=== PATIENT | female | born 2000 | race Caucasian/White ===

== ENCOUNTER 2018-05-13 20:50 | Emergency (ER) | payer MEDICAID ==
[~2018-05-13] VITALS: Ht 160 cm; Wt 110.2 kg
[2018-05-13 21:01] VITALS: BP 139/65
[2018-05-13] MEDS ORDERED: OMEP20TC12 PO (21:03)
--- NOTE | 2018-05-13 21:04 | NUR ---
PT RETURNED TO LOBBY IN STABLE CONDITION
--- NOTE | 2018-05-13 21:41 | NUR ---
PT AMBULATED TO BED 08.
--- NOTE | 2018-05-13 21:52 | NUR ---
PT BIB self C/O ABD pain x4 days. PT reports sharp pain in epigastric region at 7/10 that radiates to left lower back. ABD is soft, tender to touch in lower ABD midline, with bowel sounds active x4 quadrants. PT reports N/V x3 days and diarrhea x1 day. PT denies any frequency or burnig with urination. ER MD to see PT. Safety precautions in place, will continue to monitor. MedHx: Asthma, gastritis RX: ibuprofen
[2018-05-13] MEDS ORDERED: ONDANSETRON 4 MG ODT PO ONE (22:40)
[2018-05-13 22:59] LABS: BASOPHILS % (AUTO) 0.4 % (0.0-2.0); EOSINOPHILS % (AUTO) 0.4 % (0.0-4.0); HEMATOCRIT 36.8 % (36-48); HEMOGLOBIN 11.5 g/dL (12.0-16.0); LYMPHOCYTES # (AUTO) 1.8 K/uL (2.5-16.5); LYMPHOCYTES % (AUTO) 18.5 % (20.5-51.1); MEAN CORPUSCULAR HEMOGLOBIN 25 pg (27-31); MEAN CORPUSCULAR HGB CONC 31 g/dL (33-37); MEAN CORPUSCULAR VOLUME 80.8 fL (80-94); MONOCYTES # (AUTO) 0.7 K/uL (0.8-1.0); MONOCYTES % (AUTO) 7.7 % (1.7-9.3); NEUTROPHILS # (AUTO) 7.1 K/uL (1.8-7.7); PLATELET COUNT (AUTO) 247 K/uL (140-450); RED BLOOD CELL COUNT(AUTO) 4.56 MIL/uL (4.20-5.40); RED CELL DISTRIBUTION WIDTH 17.6 % (11.6-13.7); WHITE BLOOD COUNT (AUTO) 9.7 K/uL (4.5-11.0)
[2018-05-13 23:28] LABS: APPEARANCE,URINE CLOUDY (CLEAR); COLOR,URINE YELLOW (YELLOW); UGLUCOSE NEGATIVE (NEGATIVE)
[2018-05-13 23:29] LABS: BILIRUBIN,URINE NEGATIVE (NEGATIVE); BLOOD, URINE 2+ (NEGATIVE); LEUKOCYTE ESTERASE ,URINE 2+ (NEGATIVE); NITRITE, URINE POSITIVE (NEGATIVE)
[2018-05-13 23:30] LABS: HYALINE CASTS, URINE 0-10 /LPF (None Seen); RBC,URINE TOO NUMEROUS TO COUN /HPF (0-5); WBC,URINE TOO MANY TO COUNT /HPF (0-5)
[2018-05-13 23:39] LABS: POTASSIUM 3.7 mmol/L (3.5-5.1)
[2018-05-13 23:40] LABS: ALBUMIN 3.5 g/dL (3.4-5.0); ANION GAP 16.9 (8-16); CARBON DIOXIDE 23.8 mmol/L (21-32); TOTAL BILIRUBIN 0.3 mg/dL (0.0-1.0)
[2018-05-13 23:41] LABS: FREE T4 (FREE THYROXINE) 1.4 ng/dL (0.76-1.46)
[2018-05-13 23:42] LABS: THYROID STIMULATING HORMONE 1.28 uIU/mL (0.34-3.74)
[2018-05-14 00:31] VITALS: BP 112/73
--- NOTE | 2018-05-14 00:33 | NUR ---
Patient discharged with v/s stable. Written and verbal after care instructions given and explained. Patient alert, oriented and verbalized understanding of instructions. Ambulatory with steady gait. All questions addressed prior to discharge. ID band removed. Patient advised to follow up with PMD. Rx of CIPRO,ZOFRAN given. Patient educated on indication of medication including possible reaction and side effects. Opportunity to ask questions provided and answered.
== END 2018-05-14 00:31 | disposition home or self-care (01) ==
LOC: MED 20:50
DX: R11.2 Nausea with vomiting, unspecified (principal); R19.7 Diarrhea, unspecified; N39.0 Urinary tract infection, site not specified; J45.909 Unspecified asthma, uncomplicated; Z79.899 Other long term (current) drug therapy
CPT/HCPCS: 36415; 80053; 81001; 81025; 83690; 84439; 84443; 85025; 87086; 87186; 99283; Q0162

== ENCOUNTER 2018-09-06 23:50 | Emergency (ER) | payer MEDICAID ==
[~2018-09-06] VITALS: Ht 160 cm; Wt 72.6 kg
[~2018-09-06 23:50] MED LIST: OMEP20TC12 PO
--- NOTE | 2018-09-06 23:51 | NUR ---
PT BIBA BLS. TAKEN TO BED 9. [place] [employer] AT BEDSIDE
[2018-09-06 23:56] VITALS: BP 15/67
--- NOTE | 2018-09-06 23:58 | NUR ---
Dr. Alberto evaluating patient at bedside.
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
[2018-09-07] MEDS ORDERED: NEOMYCIN/POLYMYXIN/BACITRACIN 0.9 GM/1 PKT TP ONE (00:11)
[2018-09-07 00:24] VITALS: BP 115/67
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
== END 2018-09-07 00:25 ==
LOC: MED 23:50
DX: S50.811A Abrasion of right forearm, initial encounter (principal); J45.909 Unspecified asthma, uncomplicated; Z79.899 Other long term (current) drug therapy; V89.2XXA Person injured in unspecified motor-vehicle accident, traffic, initial encounter; Y93.89 Activity, other specified; Y92.410 Unspecified street and highway as the place of occurrence of the external cause; Y99.8 Other external cause status
CPT/HCPCS: 99283

== ENCOUNTER 2023-09-24 10:32 | Emergency (ER) | payer MEDICAID, OTHER ==
[~2023-09-24] VITALS: Ht 157.5 cm; Wt 108.4 kg
[~2023-09-24 10:32] MED LIST changes: +OMEP-278 PO; -OMEP20TC12 PO
[2023-09-24 10:59] VITALS: BP 135/87; PULSE 60; RESP 19; TEMP 96.8; O2SAT 99
[2023-09-24 11:33] VITALS: O2SAT 99
[2023-09-24] MEDS: KETOROLAC 60 MG/2 ML VIAL IM ONE (11:51)
[2023-09-24] MEDS: ONDANSETRON 4 MG ODT PO ONE (11:53)
[2023-09-24 12:30] LABS: BASOPHILS # (AUTO) 0.1 K/uL (0.00-0.22); BASOPHILS % (AUTO) 0.5 % (0.0-2.0); EOSINOPHILS % (AUTO) 0.1 % (0.0-4.0); HEMOGLOBIN 12.7 g/dL (12.0-16.0); LYMPHOCYTES # (AUTO) 1.1 K/uL (2.5-16.5); LYMPHOCYTES % (AUTO) 9.1 % (20.5-51.1); MEAN CORPUSCULAR HEMOGLOBIN 27 pg (27-31); MEAN CORPUSCULAR HGB CONC 33 g/dL (33-37); MEAN CORPUSCULAR VOLUME 83.3 fL (80-94); MONOCYTES # (AUTO) 0.2 K/uL (0.8-1.0); MONOCYTES % (AUTO) 1.9 % (1.7-9.3); NEUTROPHILS # (AUTO) 10.2 K/uL (1.8-7.7); NEUTROPHILS % (AUTO) 88.4 % (42.2-75.2); PLATELET COUNT (AUTO) 243 K/uL (140-450); RED BLOOD CELL COUNT(AUTO) 4.68 MIL/uL (4.20-5.40); RED CELL DISTRIBUTION WIDTH 17.1 % (11.6-13.7); WHITE BLOOD COUNT (AUTO) 11.5 K/uL (4.8-10.8)
[2023-09-24 12:43] LABS: CALCIUM 9.1 mg/dL (8.5-10.1); CREATININE 0.9 mg/dL (0.6-1.3)
[2023-09-24 12:49] LABS: ALBUMIN 4.1 g/dL (3.4-5.0); BILIRUBIN,DIRECT 0.1 mg/dL (0.0-0.3); TOTAL BILIRUBIN 0.3 mg/dL (0.0-1.0); TOTAL PROTEIN, SERUM 7.6 g/dL (6.4-8.2)
[2023-09-24] MEDS ORDERED: ONDA-188 SL (13:14)
[2023-09-24 13:24] VITALS: BP 115/64; PULSE 74; RESP 17; O2SAT 98
[2023-09-24] MEDS ORDERED: COM25S RC (13:24)
[2023-09-24] MEDS ORDERED: BENZ-315 PO (13:24)
[2023-09-24] MEDS ORDERED: HAL5 PO (13:24)
== END 2023-09-24 13:24 | disposition home or self-care (01) ==
LOC: MED 10:32
DX: R11.2 Nausea with vomiting, unspecified (principal); R68.83 Chills (without fever); R61 Generalized hyperhidrosis; R19.7 Diarrhea, unspecified; R42 Dizziness and giddiness; J45.909 Unspecified asthma, uncomplicated; Z79.1 Long term (current) use of non-steroidal anti-inflammatories (NSAID); Z79.899 Other long term (current) drug therapy
CPT/HCPCS: 36415; 76705; 80048; 80076; 83690; 85025; 96372; 99285; J1885; Q0092; Q0162